=== PATIENT | male | born 1940 | race Caucasian/White ===

== ENCOUNTER 2019-02-11 19:39 | Inpatient (IN) ==
[2019-02-11] MEDS ORDERED: Naloxone 0.4 MG/ML INJ IVP PRN (22:26)
[2019-02-11] MEDS ORDERED: 0.9 % Sodium Chloride 1,000 ML IVC SCH (22:30)
[2019-02-11 23:29] LABS: INR 1.2; Prothrombin Time 13.1 Seconds (9.4-12.1)
[2019-02-11 23:32] LABS: Activated Partial Thrombo Time 33.1 Seconds (26.0-36.0)
[2019-02-11 23:41] LABS: Alanine Aminotransferase 6 Units/L (7-52); Albumin 2.6 g/dL (3.5-5.7); Alkaline Phosphatase 191 Units/L (34-104); Aspartate Amino Transferase 16 Units/L (13-39); BUN/Creatinine Ratio 14 (6-26); Bilirubin,Total 0.3 mg/dL (0.3-1.0); Blood Urea Nitrogen 23 mg/dL (8-23); Calcium 8.2 mg/dL (8.6-10.3); Carbon Dioxide 23 mEq/L (23-29); Chloride 104 mEq/L (98-107); Globulin 2.7 g/dL (2.4-3.5); Glucose 111 mg/dL (70-105); Magnesium 1.8 mg/dL (1.6-2.6); Osmolality,Calculated 282 (280-300); Potassium 4.3 mEq/L (3.5-5.1); Sodium 134 mEq/L (136-145); Total Protein 5.3 g/dL (6.4-8.9); Troponin I < 0.03 ng/mL (< 0.04); eGFR For African Americans 49 (> 60); eGFR For Non-African Americans 41 (> 60)
[2019-02-12 06:13] LABS: Basophils % 0.2 %; Eosinophils # 0.1 K/mcL (0.0-0.6); Eosinophils % 0.7 %; Hematocrit 24.9 % (37.5-50.1); Hemoglobin 8.1 g/dL (12.9-16.9); Immature Granulocytes % 1.3 % (0-4); Lymphocytes % 7.7 %; Mean Corpuscular HGB Conc 32.5 g/dL (31.6-35.5); Mean Corpuscular Hemoglobin 30.2 pg (28.0-33.3); Mean Corpuscular Volume 92.9 fL (83.0-100.0); Mean Platelet Volume 8.9 fL (9.4-12.4); Monocytes # 1.1 K/mcL (0.0-1.3); Monocytes % 8.5 %; Platelet Count 369 K/mcL (140-400); Red Blood Count 2.68 M/mcL (4.19-5.50); Red Cell Distribution Width 13.5 % (11.5-14.5); Segmented Neutrophils % 81.6 %; White Blood Count 13.5 K/mcL (4.3-11.1)
[2019-02-12] MEDS ORDERED: 0.9 % Sodium Chloride 250 ML ONE (10:13)
[2019-02-12] MEDS ORDERED: Acetaminophen 325 MG TABLET PO PRN (10:46)
[2019-02-12] MEDS ORDERED: *HR* OxyCODONE/APAP 10/325 TABLET PO PRN (11:31)
[2019-02-12] MEDS: predniSONE 5 MG TABLET PO SCH (12:34)
[2019-02-12] MEDS: XTANDI 40 MG PO SCH (12:34)
[2019-02-12 12:55] LABS: Bilirubin,Urine Negative (Negative); Blood,Urine Large (Negative); Clarity,Urine Turbid (Clear); Color,Urine Red (Yellow); Glucose,Urine (UA) Normal (Normal); Ketones,Urine Negative (Negative); Leukocyte Esterase,Urine Large (Negative); Nitrite,Urine Negative (Negative); PH,Urine 7.5 pH Units (5.0-8.0); Protein,Urine >=1000 mg/dL (Neg-Trace); Specific Gravity,Urine 1.015 (1.010-1.025); Urobilinogen,Urine Normal (Normal)
[2019-02-12 13:33] LABS: RBC,Urine Present per hpf (0-3); WBC,Urine Present per hpf (0-3)
[2019-02-12 13:34] LABS: Bacteria,Urine Present per hpf (None-Few); Transitional Epi Cells,Urine Present per hpf (None-Few)
[2019-02-12] MEDS ORDERED: cefTRIAXone 1,000 MG in Water for inj. (sterile) 10 ML IVP SCH (16:13)
[2019-02-12 16:28] LABS: Hematocrit 27.2 % (37.5-50.1); Hemoglobin 9.3 g/dL (12.9-16.9)
[2019-02-13 07:56] LABS: Hematocrit 28.3 % (37.5-50.1); Hemoglobin 9.6 g/dL (12.9-16.9); Mean Corpuscular HGB Conc 33.9 g/dL (31.6-35.5); Mean Corpuscular Hemoglobin 29.7 pg (28.0-33.3); Mean Corpuscular Volume 87.6 fL (83.0-100.0); Mean Platelet Volume 8.5 fL (9.4-12.4); Platelet Count 362 K/mcL (140-400); Red Blood Count 3.23 M/mcL (4.19-5.50); Red Cell Distribution Width 13.4 % (11.5-14.5); White Blood Count 13.1 K/mcL (4.3-11.1)
[2019-02-13 08:16] LABS: Calcium 8.2 mg/dL (8.6-10.3); Magnesium 1.7 mg/dL (1.6-2.6); Phosphorous 3.5 mg/dL (2.7-4.5); Potassium 4.4 mEq/L (3.5-5.1)
[2019-02-13] MEDS: predniSONE 5 MG TABLET PO SCH (08:34)
[2019-02-13] MEDS: cefTRIAXone 1,000 MG in 0.9 % Sodium Chloride Mini Bag 100 ML IVPB SCH (08:34)
[2019-02-13] MEDS: XTANDI 40 MG PO SCH (08:36)
[2019-02-13 08:43] LABS: Folate > 22.3 ng/mL (3.0-16.0); Vitamin B12 1166 pg/mL (250-1100)
[2019-02-13] MEDS ORDERED: XTANDI 40 MG PO SCH (09:00)
[2019-02-13 09:16] LABS: Ferritin 541 ng/mL (20-250); Iron < 10 mcg/dL (65-175); Lactate Dehydrogenase 173 Units/L (140-271); Transferrin 139 mg/dL (203-362)
[2019-02-14 05:05] LABS: Hematocrit 27.2 % (37.5-50.1); Hemoglobin 9.1 g/dL (12.9-16.9); Mean Corpuscular HGB Conc 33.5 g/dL (31.6-35.5); Mean Corpuscular Hemoglobin 30.1 pg (28.0-33.3); Mean Corpuscular Volume 90.1 fL (83.0-100.0); Mean Platelet Volume 8.4 fL (9.4-12.4); Platelet Count 303 K/mcL (140-400); Red Blood Count 3.02 M/mcL (4.19-5.50); Red Cell Distribution Width 13.2 % (11.5-14.5); White Blood Count 11.8 K/mcL (4.3-11.1)
[2019-02-14 05:25] LABS: Calcium 8.5 mg/dL (8.6-10.3); Potassium 4.3 mEq/L (3.5-5.1)
[2019-02-14] MEDS: cefTRIAXone 1,000 MG in 0.9 % Sodium Chloride Mini Bag 100 ML IVPB SCH (09:22)
[2019-02-14] MEDS: predniSONE 5 MG TABLET PO SCH (09:22)
[2019-02-14] MEDS: XTANDI 40 MG PO SCH (09:23)
[2019-02-14] MEDS ORDERED: 0.9 % Sodium Chloride 500 ML IVC ONE (11:10)
[2019-02-14] MEDS ORDERED: 0.9 % Sodium Chloride 1,000 ML ONE (11:11)
[2019-02-14] MEDS: 0.9 % Sodium Chloride 1,000 ML IVC SCH ×2 (11:50→17:42)
[2019-02-15] MEDS: 0.9 % Sodium Chloride 1,000 ML IVC SCH (04:19)
[2019-02-15] MEDS: predniSONE 5 MG TABLET PO SCH (09:34)
[2019-02-15] MEDS: cefTRIAXone 1,000 MG in 0.9 % Sodium Chloride Mini Bag 100 ML IVPB SCH (09:34)
[2019-02-15] MEDS: XTANDI 40 MG PO SCH (09:37)
[2019-02-15 11:33] VITALS: BP 121/69
[2019-02-15 11:53] LABS: Hematocrit 27.3 % (37.5-50.1); Hemoglobin 9.3 g/dL (12.9-16.9); Mean Corpuscular HGB Conc 34.1 g/dL (31.6-35.5); Mean Corpuscular Hemoglobin 30.2 pg (28.0-33.3); Mean Corpuscular Volume 88.6 fL (83.0-100.0); Mean Platelet Volume 8.3 fL (9.4-12.4); Platelet Count 314 K/mcL (140-400); Red Blood Count 3.08 M/mcL (4.19-5.50); Red Cell Distribution Width 13.2 % (11.5-14.5)
[2019-02-15 12:14] LABS: BUN/Creatinine Ratio 18 (6-26); Blood Urea Nitrogen 23 mg/dL (8-23); Calcium 8.5 mg/dL (8.6-10.3); Carbon Dioxide 25 mEq/L (23-29); Chloride 106 mEq/L (98-107); Glucose 115 mg/dL (70-105); Osmolality,Calculated 285 (280-300); Potassium 4.7 mEq/L (3.5-5.1); Sodium 135 mEq/L (136-145); eGFR For African Americans > 60 (> 60); eGFR For Non-African Americans 54 (> 60)
[2019-02-15] MEDS ORDERED: Sennosides/Docusate Sodium TABLET PO SCH (21:00)
== END 2019-02-15 17:20 | disposition home health service (06) | DRG 722 ==
LOC: 2ANU → SUATTDRO 22:16
PROVIDERS: ADMIT Internal Medicine; ATTEND Family Medicine

== ENCOUNTER 2019-04-03 21:41 | Inpatient (IN) ==
[2019-04-03] MEDS ORDERED: Ondansetron 4 MG/2 ML VIAL IVP ONE (22:28)
[2019-04-03] MEDS ORDERED: cefTRIAXone 1,000 MG in Water for inj. (sterile) 10 ML IVP ONE (22:28)
[2019-04-03 22:59] LABS: Bilirubin,Urine Small (Negative); Blood,Urine Negative (Negative); Clarity,Urine Turbid (Clear); Color,Urine Dark Yellow (Yellow); Glucose,Urine (UA) 100 mg/dL (Normal); Ketones,Urine 15 mg/dL (Negative); Leukocyte Esterase,Urine Large (Negative); Nitrite,Urine Negative (Negative); PH,Urine 8.5 pH Units (5.0-8.0); Protein,Urine >=1000 mg/dL (Neg-Trace); Specific Gravity,Urine 1.023 (1.010-1.025); Urobilinogen,Urine Normal (Normal)
[2019-04-03 23:00] LABS: Basophils % 0.3 %; Eosinophils % 0.1 %; Hemoglobin 10.3 g/dL (12.9-16.9); Immature Granulocytes % 1.5 % (0-4); Lymphocytes # 0.7 K/mcL (0.6-4.6); Lymphocytes % 5.6 %; Mean Corpuscular HGB Conc 33.2 g/dL (31.6-35.5); Mean Corpuscular Hemoglobin 29.6 pg (28.0-33.3); Mean Corpuscular Volume 89.1 fL (83.0-100.0); Mean Platelet Volume 8.8 fL (9.4-12.4); Monocytes # 1.1 K/mcL (0.0-1.3); Monocytes % 9.3 %; Platelet Count 287 K/mcL (140-400); Red Blood Count 3.48 M/mcL (4.19-5.50); Red Cell Distribution Width 16.2 % (11.5-14.5); Segmented Neutrophils % 83.2 %; White Blood Count 12.1 K/mcL (4.3-11.1)
[2019-04-03 23:06] LABS: INR 1.2; Prothrombin Time 13.3 Seconds (9.4-12.1)
[2019-04-03 23:09] LABS: Activated Partial Thrombo Time 36.5 Seconds (26.0-36.0)
[2019-04-03] MEDS: 0.9 % Sodium Chloride 1,000 ML IVC SCH (23:11)
[2019-04-03 23:14] LABS: Bacteria,Urine Moderate per hpf (None-Few); Squamous Epithelial Cell,Urine Few per lpf (None-Few); WBC,Urine TNTC per hpf (0-3)
[2019-04-03 23:15] LABS: Clarity,Urine Cloudy (Clear); Color,Urine Dark-Yellow (Yellow); RBC,Urine TNTC per hpf (0-3)
[2019-04-03 23:18] LABS: Bilirubin,Urine Small (Negative); Blood,Urine Small (Negative); Glucose,Urine (UA) 100 mg/dL (Normal); Ketones,Urine 15 mg/dL (Negative); PH,Urine 8.5 pH Units (5.0-8.0); Protein,Urine >=1000 mg/dL (Neg-Trace); Specific Gravity,Urine 1.023 (1.010-1.025)
[2019-04-03 23:19] LABS: Leukocyte Esterase,Urine Large (Negative); Nitrite,Urine Negative (Negative); Urobilinogen,Urine Normal (Normal)
[2019-04-03 23:20] LABS: Bacteria,Urine Many per hpf (None-Few); Hyaline Casts,Urine Few per lpf (None-Few); RBC,Urine TNTC per hpf (0-3); Squamous Epithelial Cell,Urine Few per lpf (None-Few); WBC,Urine TNTC per hpf (0-3); Yeast,Urine Few per hpf (None Seen)
[2019-04-03 23:21] LABS: Alanine Aminotransferase 4 Units/L (7-52); Albumin 2.8 g/dL (3.5-5.7); Albumin/Globulin Ratio 1.1 (1.1-2.2); Alkaline Phosphatase 110 Units/L (34-104); Aspartate Amino Transferase 9 Units/L (13-39); BUN/Creatinine Ratio 15 (6-26); Bilirubin,Total 0.7 mg/dL (0.3-1.0); Blood Urea Nitrogen 32 mg/dL (8-23); Calcium 6.6 mg/dL (8.6-10.3); Carbon Dioxide 18 mEq/L (23-29); Chloride 106 mEq/L (98-107); Globulin 2.6 g/dL (2.4-3.5); Glucose 139 mg/dL (70-105); Osmolality,Calculated 291 (280-300); Potassium 4.5 mEq/L (3.5-5.1); Sodium 136 mEq/L (136-145); Total Protein 5.4 g/dL (6.4-8.9); eGFR For African Americans 36 (> 60); eGFR For Non-African Americans 30 (> 60)
[2019-04-03 23:22] LABS: Troponin I < 0.03 ng/mL (< 0.04)
[2019-04-04] MEDS: 0.9 % Sodium Chloride 1,000 ML IVC SCH (01:04)
[2019-04-04] MEDS ORDERED: Naloxone 0.4 MG/ML INJ IVP PRN (02:04)
[2019-04-04] MEDS ORDERED: Calcium Gluconate 1gm/50mL 1 GM/50 ML BAG IVPB ONE ×2 (02:30→06:30)
[2019-04-04 03:58] LABS: Protein/Creatinine Ratio,Urine 7.39 mg/mg (0.00-0.20); Sodium, Urine 97.5 mEq/L
[2019-04-04 05:31] LABS: Basophils % 0.2 %; Eosinophils % 0.1 %; Hemoglobin 9.3 g/dL (12.9-16.9); Immature Granulocytes % 1.2 % (0-4); Lymphocytes # 0.4 K/mcL (0.6-4.6); Lymphocytes % 3.8 %; Mean Corpuscular HGB Conc 33.2 g/dL (31.6-35.5); Mean Corpuscular Volume 90.3 fL (83.0-100.0); Mean Platelet Volume 8.8 fL (9.4-12.4); Monocytes # 0.8 K/mcL (0.0-1.3); Platelet Count 212 K/mcL (140-400); Red Cell Distribution Width 16.3 % (11.5-14.5); Segmented Neutrophils % 86.7 %; White Blood Count 10.4 K/mcL (4.3-11.1)
[2019-04-04] MEDS: Morphine Sulfate ER (12 HR) 15 MG TABLET.ER PO SCH ×2 (05:40→17:23)
[2019-04-04 05:55] LABS: Albumin 2.4 g/dL (3.5-5.7); Bilirubin,Total 0.5 mg/dL (0.3-1.0); Calcium 6.3 mg/dL (8.6-10.3); Globulin 2.3 g/dL (2.4-3.5); Magnesium 2.3 mg/dL (1.6-2.6); Phosphorous 1.5 mg/dL (2.7-4.5); Potassium 4.6 mEq/L (3.5-5.1); Total Protein 4.7 g/dL (6.4-8.9)
[2019-04-04 06:02] LABS: Thyroid Stimulating Hormone 3.576 mcIU/mL (0.340-5.600)
[2019-04-04] MEDS: predniSONE 5 MG TABLET PO SCH (09:42)
[2019-04-04] MEDS: Ondansetron ODT 4 MG TAB.RAPDIS PO SCH ×2 (09:42→21:50)
[2019-04-04 10:04] LABS: Estimated Average Glucose 105 mg/dl
[2019-04-04] MEDS ORDERED: 0.9 % Sodium Chloride 1,000 ML IVC SCH (13:45)
[2019-04-04 17:51] LABS: Iron < 10 mcg/dL (65-175); Transferrin 101 mg/dL (203-362)
[2019-04-04 17:54] LABS: Uric Acid 10.7 mg/dL (2.3-7.6)
[2019-04-04] MEDS: cefTRIAXone 1,000 MG in Water for inj. (sterile) 10 ML IVP SCH (17:59)
[2019-04-04 18:08] LABS: Enterococcus by PCR Not Detected (Not Detect); Staphylococcus by PCR Not Detected (Not Detect); blaKPC Carbapenem-Resist Gene Not Detected (Not Detect)
[2019-04-04 18:09] LABS: Acinetobacter baumannii by PCR Not Detected (Not Detect); Candida albicans by PCR Not Detected (Not Detect); Candida glabrata by PCR Not Detected (Not Detect); Candida krusei by PCR Not Detected (Not Detect); Candida parapsilosis by PCR Not Detected (Not Detect); Candida tropicalis by PCR Not Detected (Not Detect); Enterobacter cloacae Cmplx PCR Not Detected (Not Detect); Escherichia coli by PCR Not Detected (Not Detect); Klebsiella oxytoca by PCR Not Detected (Not Detect); Klebsiella pneumoniae by PCR Not Detected (Not Detect); Proteus by PCR DETECTED (Not Detect); Pseudomonas aeruginosa by PCR Not Detected (Not Detect); Serratia marcescens by PCR Not Detected (Not Detect); Staphylococcus aureus by PCR Not Detected (Not Detect); Streptococcus agalactiae(B)PCR Not Detected (Not Detect); Streptococcus by PCR Not Detected (Not Detect); Streptococcus pneumoniae PCR Not Detected (Not Detect); Streptococcus pyogenes (A) PCR Not Detected (Not Detect)
[2019-04-04] MEDS: Magic Mouthwash 10 ML UD Cup PO SCH (18:43)
[2019-04-04] MEDS: Mirtazapine 15 MG TABLET PO SCH (21:50)
[2019-04-05] MEDS: *HR* Heparin 5,000 UNIT/ML VIAL SQ SCH ×2 (01:23→09:05)
[2019-04-05] MEDS: Morphine Sulfate ER (12 HR) 15 MG TABLET.ER PO SCH ×2 (05:23→18:04)
[2019-04-05 05:26] LABS: Basophils % 0.4 %; Eosinophils % 0.2 %; Hematocrit 26.2 % (37.5-50.1); Hemoglobin 8.3 g/dL (12.9-16.9); Immature Granulocytes % 1.1 % (0-4); Lymphocytes # 0.4 K/mcL (0.6-4.6); Mean Corpuscular HGB Conc 31.7 g/dL (31.6-35.5); Mean Corpuscular Hemoglobin 29.7 pg (28.0-33.3); Mean Corpuscular Volume 93.9 fL (83.0-100.0); Mean Platelet Volume 8.7 fL (9.4-12.4); Monocytes # 0.7 K/mcL (0.0-1.3); Monocytes % 11.6 %; Neutrophils # 4.5 K/mcL (1.6-8.9); Platelet Count 151 K/mcL (140-400); Red Blood Count 2.79 M/mcL (4.19-5.50); Red Cell Distribution Width 16.2 % (11.5-14.5); Segmented Neutrophils % 79.7 %; White Blood Count 5.7 K/mcL (4.3-11.1)
[2019-04-05 05:49] LABS: Albumin 2.3 g/dL (3.5-5.7); Bilirubin,Total 0.3 mg/dL (0.3-1.0); Calcium 6.4 mg/dL (8.6-10.3); Globulin 2.2 g/dL (2.4-3.5); Total Protein 4.5 g/dL (6.4-8.9)
[2019-04-05] MEDS: Ondansetron ODT 4 MG TAB.RAPDIS PO SCH ×2 (09:04→22:02)
[2019-04-05] MEDS: Magic Mouthwash 10 ML UD Cup PO SCH ×3 (09:04→18:04)
[2019-04-05] MEDS: predniSONE 5 MG TABLET PO SCH (09:04)
[2019-04-05] MEDS: cefTRIAXone 1,000 MG in Water for inj. (sterile) 10 ML IVP SCH (09:05)
[2019-04-05] MEDS ORDERED: 0.9 % Sodium Chloride 500 ML ONE (09:14)
[2019-04-05] MEDS ORDERED: Isovue-300 50ML VIAL IVP ONE (09:58)
[2019-04-05] MEDS ORDERED: 0.9 % Sodium Chloride 1,000 ML IVC SCH (12:30)
[2019-04-05] MEDS ORDERED: cefTRIAXone 2,000 MG in Water for inj. (sterile) 20 ML IVP SCH (13:00)
[2019-04-05] MEDS ORDERED: cefTRIAXone 1,000 MG in Water for inj. (sterile) 10 ML IVP ONE (13:59)
[2019-04-05] MEDS: *HR* OxyCODONE Immed Rel 5 MG TABLET PO PRN (22:02)
[2019-04-05] MEDS: Mirtazapine 15 MG TABLET PO SCH (22:02)
[2019-04-06] MEDS ORDERED: Acetaminophen IV 1,000 MG/100 ML INFUS..BTL IVPB ONE (00:40)
[2019-04-06 04:23] LABS: Basophils % 0.6 %; Eosinophils % 0.4 %; Hematocrit 25.3 % (37.5-50.1); Hemoglobin 8.4 g/dL (12.9-16.9); Immature Granulocytes % 1.3 % (0-4); Lymphocytes # 0.6 K/mcL (0.6-4.6); Lymphocytes % 10.2 %; Mean Corpuscular HGB Conc 33.2 g/dL (31.6-35.5); Mean Corpuscular Hemoglobin 29.8 pg (28.0-33.3); Mean Corpuscular Volume 89.7 fL (83.0-100.0); Mean Platelet Volume 9.1 fL (9.4-12.4); Monocytes # 0.7 K/mcL (0.0-1.3); Monocytes % 13.7 %; Platelet Count 211 K/mcL (140-400); Red Blood Count 2.82 M/mcL (4.19-5.50); Segmented Neutrophils % 73.8 %; White Blood Count 5.4 K/mcL (4.3-11.1)
[2019-04-06 04:43] LABS: Albumin 2.2 g/dL (3.5-5.7); Bilirubin,Total 0.2 mg/dL (0.3-1.0); Globulin 2.1 g/dL (2.4-3.5); Potassium 4.4 mEq/L (3.5-5.1); Total Protein 4.3 g/dL (6.4-8.9)
[2019-04-06] MEDS: predniSONE 5 MG TABLET PO SCH (11:04)
[2019-04-06] MEDS: Magic Mouthwash 10 ML UD Cup PO SCH ×3 (11:04→17:33)
[2019-04-06] MEDS: Ondansetron ODT 4 MG TAB.RAPDIS PO SCH ×2 (11:04→19:44)
[2019-04-06] MEDS: cefTRIAXone 2,000 MG in Water for inj. (sterile) 20 ML IVP SCH (11:04)
[2019-04-06] MEDS: Morphine Sulfate ER (12 HR) 15 MG TABLET.ER PO SCH ×2 (11:05→17:32)
[2019-04-06] MEDS: *HR* OxyCODONE Immed Rel 5 MG TABLET PO PRN (19:43)
[2019-04-06] MEDS: Mirtazapine 15 MG TABLET PO SCH (19:44)
[2019-04-07] MEDS: *HR* OxyCODONE Immed Rel 5 MG TABLET PO PRN (01:25)
[2019-04-07 02:07] LABS: Basophils % 0.4 %; Eosinophils % 0.2 %; Hematocrit 27.9 % (37.5-50.1); Hemoglobin 9.1 g/dL (12.9-16.9); Immature Granulocytes % 0.6 % (0-4); Lymphocytes # 0.7 K/mcL (0.6-4.6); Lymphocytes % 14.9 %; Mean Corpuscular HGB Conc 32.6 g/dL (31.6-35.5); Mean Corpuscular Hemoglobin 29.8 pg (28.0-33.3); Mean Corpuscular Volume 91.5 fL (83.0-100.0); Mean Platelet Volume 9.1 fL (9.4-12.4); Monocytes # 0.5 K/mcL (0.0-1.3); Monocytes % 10.8 %; Neutrophils # 3.4 K/mcL (1.6-8.9); Platelet Count 222 K/mcL (140-400); Red Blood Count 3.05 M/mcL (4.19-5.50); Red Cell Distribution Width 16.2 % (11.5-14.5); Segmented Neutrophils % 73.1 %; White Blood Count 4.6 K/mcL (4.3-11.1)
[2019-04-07 02:17] LABS: Albumin 2.5 g/dL (3.5-5.7); Albumin/Globulin Ratio 1.1 (1.1-2.2); Bilirubin,Total 0.2 mg/dL (0.3-1.0); Calcium 7.2 mg/dL (8.6-10.3); Globulin 2.3 g/dL (2.4-3.5); Potassium 4.8 mEq/L (3.5-5.1); Total Protein 4.8 g/dL (6.4-8.9)
[2019-04-07] MEDS: Morphine Sulfate ER (12 HR) 15 MG TABLET.ER PO SCH (05:09)
[2019-04-07] MEDS: Magic Mouthwash 10 ML UD Cup PO SCH ×2 (05:09→13:21)
[2019-04-07] MEDS: predniSONE 5 MG TABLET PO SCH (08:46)
[2019-04-07] MEDS: Ondansetron ODT 4 MG TAB.RAPDIS PO SCH (08:46)
[2019-04-07] MEDS: cefTRIAXone 2,000 MG in Water for inj. (sterile) 20 ML IVP SCH (08:46)
[2019-04-07 11:16] VITALS: BP 94/61
[2019-04-07 17:25] LABS: Kappa Qnt Free Light Chains 3.38 mg/dL (0.33-1.94); Lambda Qnt Free Light Chains 3.64 mg/dL (0.57-2.63)
[2019-04-07 17:44] LABS: Urine Collection Volume RANDOM mL
[2019-04-09 08:55] LABS: Beta Globulin (PEP) 0.45 g/dL (0.48-1.10)
[2019-04-09 11:11] LABS: Immunoglobulin A 149 mg/dL (68-408); Immunoglobulin G 561 mg/dL (768-1632); Immunoglobulin M 107 mg/dL (35-263)
[2019-04-09 11:12] LABS: IFE Reflexed IFE Done
== END 2019-04-07 14:40 | disposition home or self-care (01) | DRG 698 ==
LOC: EMEROOARM 21:41 → 3BNU 21:41
PROVIDERS: ADMIT Internal Medicine; ATTEND Internal Medicine

== ENCOUNTER 2019-07-29 12:19 | Inpatient (IN) ==
[2019-07-29] MEDS ORDERED: 0.9 % Sodium Chloride 1,000 ML IVC ONE ×2 (12:38→13:26)
[2019-07-29 13:01] LABS: Basophils # 0.1 K/mcL (0.0-0.2); Basophils % 0.3 %; Eosinophils # 0.2 K/mcL (0.0-0.6); Eosinophils % 1.3 %; Hematocrit 29.6 % (37.5-50.1); Hemoglobin 8.7 g/dL (12.9-16.9); Immature Granulocytes % 0.7 % (0-4); Lymphocytes % 6.2 %; Mean Corpuscular HGB Conc 29.4 g/dL (31.6-35.5); Mean Corpuscular Volume 85.1 fL (83.0-100.0); Mean Platelet Volume 8.8 fL (9.4-12.4); Monocytes # 1.3 K/mcL (0.0-1.3); Monocytes % 7.8 %; Neutrophils # 13.4 K/mcL (1.6-8.9); Platelet Count 283 K/mcL (140-400); Red Blood Count 3.48 M/mcL (4.19-5.50); Red Cell Distribution Width 17.2 % (11.5-14.5); Segmented Neutrophils % 83.7 %; White Blood Count 16.1 K/mcL (4.3-11.1)
[2019-07-29 13:10] LABS: Bilirubin,Urine Negative (Negative); Blood,Urine Large (Negative); Clarity,Urine Turbid (Clear); Color,Urine Yellow (Yellow); Glucose,Urine (UA) Normal (Normal); Ketones,Urine Negative (Negative); Leukocyte Esterase,Urine Large (Negative); Nitrite,Urine Negative (Negative); PH,Urine 6.5 pH Units (5.0-8.0); Protein,Urine 100 mg/dL (Neg-Trace); Specific Gravity,Urine 1.018 (1.010-1.025); Urobilinogen,Urine Normal (Normal)
[2019-07-29 13:11] LABS: Bacteria,Urine Moderate per hpf (None-Few); Hyaline Casts,Urine None Seen per lpf (None-Few); Squamous Epithelial Cell,Urine Moderate per lpf (None-Few); WBC,Urine TNTC per hpf (0-3)
[2019-07-29 13:19] LABS: RBC,Urine 50-100 per hpf (0-3)
[2019-07-29 13:20] LABS: Alanine Aminotransferase 5 Units/L (7-52); Albumin 2.5 g/dL (3.5-5.7); Albumin/Globulin Ratio 0.9 (1.1-2.2); Alkaline Phosphatase 83 Units/L (34-104); Aspartate Amino Transferase 9 Units/L (13-39); BUN/Creatinine Ratio 18 (6-26); Bilirubin,Total 0.4 mg/dL (0.3-1.0); Blood Urea Nitrogen 29 mg/dL (8-23); Calcium 7.1 mg/dL (8.6-10.3); Carbon Dioxide 18 mEq/L (23-29); Chloride 105 mEq/L (98-107); Globulin 2.9 g/dL (2.4-3.5); Glucose 110 mg/dL (70-105); Magnesium 1.8 mg/dL (1.6-2.6); Osmolality,Calculated 280 (280-300); Potassium 4.5 mEq/L (3.5-5.1); Sodium 132 mEq/L (136-145); Total Protein 5.4 g/dL (6.4-8.9); Troponin I < 0.03 ng/mL (< 0.04); eGFR For African Americans 50 (> 60); eGFR For Non-African Americans 41 (> 60)
[2019-07-29] MEDS ORDERED: 0.9 % Sodium Chloride 250 ML IVC ONE (13:27)
[2019-07-29] MEDS ORDERED: Piperacillin/Tazobactam 3.375 GM in 0.9 % Sodium Chloride Mini Bag 100 ML IVPB ONE (13:34)
[2019-07-29] MEDS ORDERED: Naloxone 0.4 MG/ML INJ IVP PRN (15:10)
[2019-07-29] MEDS ORDERED: 0.9 % Sodium Chloride 250 ML IVC SCH ×2 (17:45→18:45)
[2019-07-29] MEDS ORDERED: Magic Mouthwash 10 ML UD Cup PO PRN (19:05)
[2019-07-29] MEDS ORDERED: Ondansetron ODT 4 MG TAB.RAPDIS PO PRN (19:05)
[2019-07-29] MEDS ORDERED: *HR* OxyCODONE Immed Rel 5 MG TABLET PO PRN (19:05)
[2019-07-29] MEDS: *HR* Heparin 5,000 UNIT/ML VIAL SQ SCH (21:24)
[2019-07-29] MEDS: Piperacillin/Tazobactam 3.375 GM in 0.9 % Sodium Chloride Mini Bag 100 ML IVPB SCH (21:24)
[2019-07-29] MEDS: Mirtazapine 15 MG TABLET PO SCH (21:25)
[2019-07-30] MEDS: Diphenoxylate/Atropine 1 TAB TABLET PO PRN (00:28)
[2019-07-30] MEDS ORDERED: 0.9 % Sodium Chloride 1,000 ML IVC SCH (03:30)
[2019-07-30] MEDS: Piperacillin/Tazobactam 3.375 GM in 0.9 % Sodium Chloride Mini Bag 100 ML IVPB SCH ×3 (05:00→21:20)
[2019-07-30] MEDS: *HR* Heparin 5,000 UNIT/ML VIAL SQ SCH ×3 (05:00→21:19)
[2019-07-30 05:15] LABS: Basophils # 0.1 K/mcL (0.0-0.2); Basophils % 0.3 %; Eosinophils # 0.3 K/mcL (0.0-0.6); Eosinophils % 1.8 %; Hematocrit 27.3 % (37.5-50.1); Hemoglobin 8.1 g/dL (12.9-16.9); Immature Granulocytes % 0.5 % (0-4); Lymphocytes # 0.8 K/mcL (0.6-4.6); Lymphocytes % 5.6 %; Mean Corpuscular HGB Conc 29.7 g/dL (31.6-35.5); Mean Corpuscular Hemoglobin 25.5 pg (28.0-33.3); Mean Corpuscular Volume 85.8 fL (83.0-100.0); Monocytes # 0.8 K/mcL (0.0-1.3); Monocytes % 5.6 %; Neutrophils # 12.6 K/mcL (1.6-8.9); Platelet Count 236 K/mcL (140-400); Red Blood Count 3.18 M/mcL (4.19-5.50); Red Cell Distribution Width 17.2 % (11.5-14.5); Segmented Neutrophils % 86.2 %; White Blood Count 14.6 K/mcL (4.3-11.1)
[2019-07-30 05:33] LABS: Calcium 6.3 mg/dL (8.6-10.3); Potassium 4.4 mEq/L (3.5-5.1)
[2019-07-30] MEDS: Morphine Sulfate ER (12 HR) 15 MG TABLET.ER PO SCH ×2 (08:05→21:19)
[2019-07-30] MEDS: predniSONE 5 MG TABLET PO SCH (08:05)
[2019-07-30] MEDS: Ringers Solution, Lactated 1,000 ML IVC SCH (08:06)
[2019-07-30] MEDS ORDERED: Calcium Gluconate 1gm/50mL 1 GM/50 ML BAG IVPB ONE (11:56)
[2019-07-30] MEDS: Mirtazapine 15 MG TABLET PO SCH (21:20)
[2019-07-31 03:53] LABS: Basophils % 0.1 %; Eosinophils # 0.2 K/mcL (0.0-0.6); Eosinophils % 0.9 %; Hematocrit 28.4 % (37.5-50.1); Hemoglobin 8.4 g/dL (12.9-16.9); Immature Granulocytes % 0.9 % (0-4); Lymphocytes # 0.8 K/mcL (0.6-4.6); Lymphocytes % 3.9 %; Mean Corpuscular HGB Conc 29.6 g/dL (31.6-35.5); Mean Corpuscular Hemoglobin 25.1 pg (28.0-33.3); Monocytes % 4.7 %; Neutrophils # 18.5 K/mcL (1.6-8.9); Platelet Count 321 K/mcL (140-400); Red Blood Count 3.34 M/mcL (4.19-5.50); Red Cell Distribution Width 17.5 % (11.5-14.5); Segmented Neutrophils % 89.5 %; White Blood Count 20.6 K/mcL (4.3-11.1)
[2019-07-31 04:14] LABS: Calcium 6.3 mg/dL (8.6-10.3); Magnesium 1.9 mg/dL (1.6-2.6); Potassium 4.4 mEq/L (3.5-5.1)
[2019-07-31] MEDS: Piperacillin/Tazobactam 3.375 GM in 0.9 % Sodium Chloride Mini Bag 100 ML IVPB SCH (07:06)
[2019-07-31] MEDS: *HR* Heparin 5,000 UNIT/ML VIAL SQ SCH ×3 (07:07→21:02)
[2019-07-31] MEDS: predniSONE 5 MG TABLET PO SCH (07:23)
[2019-07-31] MEDS: Morphine Sulfate ER (12 HR) 15 MG TABLET.ER PO SCH ×2 (07:24→21:02)
[2019-07-31] MEDS: Ringers Solution, Lactated 1,000 ML IVC SCH ×4 (07:27→23:43)
[2019-07-31] MEDS: Diphenoxylate/Atropine 1 TAB TABLET PO PRN (07:27)
[2019-07-31] MEDS ORDERED: Aminoglycoside Consult 1 EACH MC ONE (09:19)
[2019-07-31 09:58] LABS: Adenovirus F 40/41 PCR Not detected (Not detect); Astrovirus PCR Not detected (Not detect); Campylobacter by PCR Not detected (Not detect); Cryptosporidium by PCR Not detected (Not detect); Cyclospora cayetanensis PCR Not detected (Not detect); E. coli O157 by PCR Not detected (Not detect); Entamoeba histolytica PCR Not detected (Not detect); Enteroaggregative E.coli(EAEC) Not detected (Not detect); Enteropathogenic E.coli(EPEC) Not detected (Not detect); Enterotoxigenic E.coli (ETEC) Not detected (Not detect); Giardia lamblia PCR Not detected (Not detect); Norovirus GI/GII PCR Not detected (Not detect); Plesiomonas shigelloides PCR Not detected (Not detect); Rotavirus A PCR Not detected (Not detect); Salmonella PCR Not detected (Not detect); Sapovirus PCR Not detected (Not detect); Shig/EnteroinvasiveE coli EIEC Not detected (Not detect); Shigalike tox-prod E coli STEC Not detected (Not detect); Vibrio PCR Not detected (Not detect); Vibrio cholerae PCR Not detected (Not detect); Yersinia enterocolitica PCR Not detected (Not detect)
[2019-07-31 10:05] LABS: C.difficile Toxin A/B Gene PCR DETECTED (Not detect)
[2019-07-31] MEDS ORDERED: 0.9 % Sodium Chloride 500 ML IVC PRN (10:24)
[2019-07-31] MEDS: Vancomycin Oral Soln 125 MG/2.5 ML UDC PO SCH ×4 (10:27→21:02)
[2019-07-31] MEDS ORDERED: 0.9 % Sodium Chloride 500 ML ONE (10:43)
[2019-07-31] MEDS ORDERED: Isovue-300 50ML VIAL IVP ONE (11:19)
[2019-07-31] MEDS ORDERED: 0.9 % Sodium Chloride 250 ML IV ONE (13:56)
[2019-07-31] MEDS ORDERED: levoFLOXacin 750 MG/150 ML 750 MG/150 ML BAG IVPB SCH (16:00)
[2019-07-31] MEDS: Mirtazapine 15 MG TABLET PO SCH (21:02)
[2019-08-01 00:36] LABS: Basophils % 0.1 %; Eosinophils # 0.1 K/mcL (0.0-0.6); Eosinophils % 0.4 %; Hemoglobin 7.6 g/dL (12.9-16.9); Immature Granulocytes % 0.5 % (0-4); Lymphocytes # 0.5 K/mcL (0.6-4.6); Lymphocytes % 2.5 %; Mean Corpuscular HGB Conc 30.4 g/dL (31.6-35.5); Mean Corpuscular Hemoglobin 25.6 pg (28.0-33.3); Mean Corpuscular Volume 84.2 fL (83.0-100.0); Mean Platelet Volume 9.3 fL (9.4-12.4); Monocytes # 0.7 K/mcL (0.0-1.3); Monocytes % 3.5 %; Neutrophils # 17.3 K/mcL (1.6-8.9); Platelet Count 249 K/mcL (140-400); Red Blood Count 2.97 M/mcL (4.19-5.50); Red Cell Distribution Width 17.4 % (11.5-14.5); White Blood Count 18.6 K/mcL (4.3-11.1)
[2019-08-01 00:56] LABS: Potassium 4.3 mEq/L (3.5-5.1)
[2019-08-01] MEDS ORDERED: Calcium Gluconate 1gm/50mL 1 GM/50 ML BAG IVPB ONE ×2 (01:03→08:30)
[2019-08-01] MEDS: Ringers Solution, Lactated 1,000 ML IVC SCH ×2 (01:36→12:23)
[2019-08-01] MEDS: *HR* Heparin 5,000 UNIT/ML VIAL SQ SCH ×3 (05:02→20:41)
[2019-08-01] MEDS: predniSONE 5 MG TABLET PO SCH (08:09)
[2019-08-01] MEDS: Morphine Sulfate ER (12 HR) 15 MG TABLET.ER PO SCH ×2 (08:09→20:41)
[2019-08-01] MEDS: Vancomycin Oral Soln 125 MG/2.5 ML UDC PO SCH ×4 (08:10→20:41)
[2019-08-01] MEDS ORDERED: Haloperidol Oral Conc 10 MG/5 ML UDC PO PRN (09:48)
[2019-08-01] MEDS ORDERED: Isovue-370 500 ML BOTTLE IVP ONE (14:59)
[2019-08-01] MEDS ORDERED: 0.9 % Sodium Chloride 500 ML IVC ONE (15:04)
[2019-08-01] MEDS: Piperacillin/Tazobactam 3.375 GM in 0.9 % Sodium Chloride Mini Bag 100 ML IVPB SCH ×2 (15:38→23:49)
[2019-08-01] MEDS: Mirtazapine 15 MG TABLET PO SCH (20:41)
[2019-08-02 03:17] LABS: Hematocrit 22.3 % (37.5-50.1); Hemoglobin 6.5 g/dL (12.9-16.9); Mean Corpuscular HGB Conc 29.1 g/dL (31.6-35.5); Mean Corpuscular Hemoglobin 24.6 pg (28.0-33.3); Mean Corpuscular Volume 84.5 fL (83.0-100.0); Mean Platelet Volume 9.4 fL (9.4-12.4); Platelet Count 201 K/mcL (140-400); Red Blood Count 2.64 M/mcL (4.19-5.50); Red Cell Distribution Width 17.4 % (11.5-14.5); White Blood Count 14.9 K/mcL (4.3-11.1)
[2019-08-02 03:43] LABS: Calcium 5.9 mg/dL (8.6-10.3); Potassium 3.9 mEq/L (3.5-5.1)
[2019-08-02] MEDS: Ringers Solution, Lactated 1,000 ML IVC SCH (04:02)
[2019-08-02] MEDS: Calcium Gluconate 1gm/50mL 1 GM/50 ML BAG IVPB SCH ×2 (05:08→06:13)
[2019-08-02] MEDS ORDERED: 0.9 % Sodium Chloride 250 ML ONE (05:39)
[2019-08-02] MEDS: Vancomycin Oral Soln 125 MG/2.5 ML UDC PO SCH ×4 (08:54→22:13)
[2019-08-02] MEDS: Piperacillin/Tazobactam 3.375 GM in 0.9 % Sodium Chloride Mini Bag 100 ML IVPB SCH ×2 (08:54→15:50)
[2019-08-02] MEDS: Morphine Sulfate ER (12 HR) 15 MG TABLET.ER PO SCH ×2 (08:55→22:14)
[2019-08-02] MEDS: predniSONE 5 MG TABLET PO SCH (08:55)
[2019-08-02] MEDS ORDERED: Calcium Chloride 1,000 MG in 0.9 % Sodium Chloride 100 ML IVPB ONE (09:28)
[2019-08-02] MEDS ORDERED: Calcium Gluconate 1gm/50mL 1 GM/50 ML BAG IVPB ONE (10:00)
[2019-08-02] MEDS: Mirtazapine 15 MG TABLET PO SCH (22:14)
[2019-08-03] MEDS: Famotidine 20 MG TABLET PO SCH ×2 (01:08→07:43)
[2019-08-03] MEDS: Piperacillin/Tazobactam 3.375 GM in 0.9 % Sodium Chloride Mini Bag 100 ML IVPB SCH ×3 (01:09→16:32)
[2019-08-03 02:09] LABS: Hematocrit 27.9 % (37.5-50.1); Mean Corpuscular HGB Conc 30.5 g/dL (31.6-35.5); Mean Corpuscular Hemoglobin 26.2 pg (28.0-33.3); Mean Corpuscular Volume 85.8 fL (83.0-100.0); Mean Platelet Volume 8.9 fL (9.4-12.4); Platelet Count 189 K/mcL (140-400); Red Blood Count 3.25 M/mcL (4.19-5.50); Red Cell Distribution Width 17.6 % (11.5-14.5); White Blood Count 10.7 K/mcL (4.3-11.1)
[2019-08-03 02:10] LABS: Hemoglobin 8.5 g/dL (12.9-16.9)
[2019-08-03 02:32] LABS: Calcium 6.6 mg/dL (8.6-10.3)
[2019-08-03] MEDS: Vancomycin Oral Soln 125 MG/2.5 ML UDC PO SCH ×3 (07:43→16:33)
[2019-08-03] MEDS: predniSONE 5 MG TABLET PO SCH (07:43)
[2019-08-03] MEDS: Morphine Sulfate ER (12 HR) 15 MG TABLET.ER PO SCH (07:43)
[2019-08-03 18:49] VITALS: BP 130/74
[2019-08-03] MEDS ORDERED: Famotidine 20 MG TABLET PO SCH (21:00)
== END 2019-08-03 19:28 | DRG 872 ==
LOC: EMEROOARM 12:19 → 2ANU 12:19 → SUATTDRO 15:33 → 2ANU 15:47
PROVIDERS: ADMIT Internal Medicine; ATTEND Internal Medicine